=== PATIENT | male | born 1965 | race Caucasian/White ===

== ENCOUNTER 2017-01-13 11:22 | Emergency (ER) | payer BC ==
[2017-01-13 11:27] VITALS: BP 116/103
[2017-01-13] MEDS ORDERED: IV NORMAL SALINE 1,000ML 1,000 ML IV ONE (12:15)
[2017-01-13 12:22] LABS: BASO # 0.1 x10^3/uL (0.0-0.2); BASO % 1 % (0-3); EOS # 0.1 x10^3/uL (0.0-0.7); EOS % 2 % (0-3); HEMOGLOBIN 14.8 g/dL (13.0-17.5); LYMPH # 1.8 x10^3/uL (1.0-4.8); LYMPH % 23 % (24-48); MEAN CORPUSCULAR HEMOGLOBIN 33 pg (25-35); MEAN CORPUSCULAR HGB CONC 34 g/dL (31-37); MEAN CORPUSCULAR VOLUME 97 fL (79-100); MONO # 0.5 x10^3/uL (0.0-1.1); MONO % 7 % (0-9); NEUT # 5.2 x10^3uL (1.8-7.7); NEUT % 67 % (31-73); PLATELET COUNT 250 x10^3/uL (140-400); RED BLOOD COUNT 4.46 x10^6/uL (4.30-5.70); RED CELL DISTRIBUTION WIDTH 13.2 % (11.5-14.5); WHITE BLOOD COUNT 7.8 x10^3/uL (4.0-11.0)
[2017-01-13 12:27] LABS: BGAS PH 7.32 (7.35-7.46)
--- NOTE | 2017-01-13 12:45 | RAD ---
Portable AP chest. History: Altered mental status, chest pain AP view was taken of the chest. Lungs are free of confluent areas of infiltrate. Heart is normal in size. There is no pleural effusion. There is an old clavicle fracture on the right. Impression: 1. Old right clavicle fracture. 2. No acute infiltrates.
--- NOTE | 2017-01-13 12:48 | RAD ---
One or more of the following individualized dose reduction techniques were utilized for this examination: 1. Automated exposure control 2. Adjustment of the mA and/or kV according to patient size 3. Use of iterative reconstruction technique CT brain without contrast History: Altered mental status CT scan of the brain was done without intravenous contrast. There is no intracranial hemorrhage or subdural hematoma. Ventricles are normal in size. There is no mass or shift of the midline. An acute CVA is not identified. There is mucosal thickening in the right maxillary sinus and in the ethmoid sinuses. Impression: 1. No intracranial hemorrhage or acute finding noted.
--- NOTE | 2017-01-13 12:54 | EKG ---
[address] [address] Test Date: 2017-01-13 Test Time: 12:39:25 Pat Name: JOSE L CASTILLO Department: Room: Gender: M Publicity Writer: : 1965 Requested By: MAHIN HADDAD Order Number: [id number] Reading MD: Measurements Intervals [place] Rate: 66 P: 40 IN: 130 QRS: 52 QRSD: 84 T: 51 QT: 368 QTc: 387 Interpretive Statements SINUS RHYTHM NORMAL ECG RI6.01 No previous ECG available for comparison
[2017-01-13 13:32] LABS: BACTERIA,URINE 0 /HPF (0-FEW); BILIRUBIN,URINE NEG (NEG); CLARITY,URINE CLEAR; COLOR,URINE YELLOW; GLUCOSE,URINE NEG (NEG); NITRITE,URINE NEG (NEG); RBC,URINE 0 /HPF (0-2); SQUAMOUS EPITHELIAL CELL,UR FEW /LPF; UROBILINOGEN,URINE 0.2 mg/dL (0.2 mg/dL); WBC,URINE 0 /HPF (0-4)
--- NOTE | 2017-01-13 13:34 | PHYS DOC ---
Past History Past Medical History: COPD Past Surgical History: No Surgical History Alcohol Use: Occasionally Drug Use: None Adult General Chief Complaint Chief Complaint: ALTERED MENTAL STATUS HPI HPI Patient is a 52 year old male who presents with his to the emergency department for evaluation of altered mental status. The patient has had increased confusion and slurring of speech per the patient's . The patient states that he has had increasing fatigue. The patient states he has history of chronic back pain and takes Percocet for his pain. Patient states that he has been taking his normal amount of medication. The patient states that he may be dehydrated as he has not been drinking much over the past couple days due to being busy. Patient has not had any fevers. Patient denies any chest pain or abdominal pain currently. Patient has been slightly unsteady on his feet since onset of symptoms but denies any localizing weakness. also notes that patient has history of sleep apnea and is being evaluated for prescription of CPAP machine. The patient is a daily smoker and has history of COPD. Review of Systems Review of Systems Constitutional: Denies fever or chills [] Eyes: Denies change in visual acuity, redness, or eye pain [] HENT: Denies nasal congestion or sore throat [] Respiratory: Denies cough or shortness of breath [] Cardiovascular: Denies chest pain or edema[] GI: Denies abdominal pain, nausea, vomiting, bloody stools or diarrhea [] : Denies dysuria or hematuria [] Musculoskeletal: Denies back pain or joint pain [] Integument: Denies rash or skin lesions [] Neurologic: Confusion, slight loss of balance, slurring words, denies focal weakness or sensory changes [] Current Medications Current Medications Current Medications Medications (Trade) Dose Ordered Sig/[facility] Start Time Stop Time Status Last Admin Dose Admin Sodium Chloride 1,000 ml @ 1,000 mls/hr 1X ONCE 01/13/17 12:15 01/13/17 13:14 DC 01/13/17 12:15 1,000 MLS/HR Allergies Allergies Allergies Coded Allergies Type Severity Reaction Last Updated Verified No Known Drug Allergies 01/13/17 No Physical Exam Physical Exam Constitutional: Alert, slight slurring of speech, no acute distress. [] HENT: Normocephalic, atraumatic, bilateral external ears normal, oropharynx moist, no oral exudates, nose normal. [] Eyes: Pupils pinpoint, EOMI, conjunctiva normal, no discharge. [] Neck: Normal range of motion, no tenderness, supple, no stridor. [] Cardiovascular:Heart rate regular rhythm, no murmur [] Lungs & Thorax: Bilateral breath sounds clear to auscultation [] Abdomen: Bowel sounds normal, soft, no tenderness, no masses, no pulsatile masses. [] Skin: Warm, dry, no erythema, no rash. [] Back: No tenderness, no CVA tenderness. [] Extremities: No tenderness, no cyanosis, no clubbing, ROM intact, no edema. [] Neurologic: Alert and oriented X 3, normal motor function, normal sensory function, no focal deficits noted. [] Current Patient Data Vital Signs Vital Signs Date Time Temp Pulse Resp B/P (MAP) Pulse Ox O2 Delivery O2 Flow Rate FiO2 01/13/17 11:27 97.8 83 16 98 Room Air Lab Results Laboratory Tests Test 01/13/17 11:30 01/13/17 12:04 01/13/17 13:15 White Blood Count 7.8 x10^3/uL (4.0-11.0) Red Blood Count 4.46 x10^6/uL (4.30-5.70) Hemoglobin 14.8 g/dL (13.0-17.5) Hematocrit 43.0 % (39.0-53.0) Mean Corpuscular Volume 97 fL (79-100) Mean Corpuscular Hemoglobin 33 pg (25-35) Mean Corpuscular Hemoglobin Concent 34 g/dL (31-37) Red Cell Distribution Width 13.2 % (11.5-14.5) Platelet Count 250 x10^3/uL (140-400) Neutrophils (%) (Auto) 67 % (31-73) Lymphocytes (%) (Auto) 23 % (24-48) L Monocytes (%) (Auto) 7 % (0-9) Eosinophils (%) (Auto) 2 % (0-3) Basophils (%) (Auto) 1 % (0-3) Neutrophils # (Auto) 5.2 x10^3uL (1.8-7.7) Lymphocytes # (Auto) 1.8 x10^3/uL (1.0-4.8) Monocytes # (Auto) 0.5 x10^3/uL (0.0-1.1) Eosinophils # (Auto) 0.1 x10^3/uL (0.0-0.7) Basophils # (Auto) 0.1 x10^3/uL (0.0-0.2) Blood pH 7.32 (7.35-7.46) L Blood Gas PCO2 51 mmHg (35-46) H Blood Gas PO2 71 mmHg (80-100) L Blood Gas HCO3 26 mmol/L (21-28) Arterial Bld O2 Saturation (Calc) 92 % (92-99) FiO2 21 % Urine Collection Type Void Urine Color Yellow Urine Clarity Clear Urine pH 5.5 Urine Specific Pearce 1.020 Urine Protein Neg (NEG-TRACE) Urine Glucose (UA) Neg mg/dL (NEG) Urine Ketones (Stick) Neg mg/dL (NEG) Urine Blood Neg (NEG) Urine Nitrite Neg (NEG) Urine Bilirubin Neg (NEG) Urine Urobilinogen Dipstick 0.2 mg/dL (0.2 mg/dL) Urine Leukocyte Esterase Neg (NEG) Urine RBC 0 /HPF (0-2) Urine WBC 0 /HPF (0-4) Urine Squamous Epithelial Cells Few /LPF Urine Bacteria 0 /HPF (0-FEW) EKG EKG Interpreted by me: Heart rate 66, sinus rhythm, normal intervals, normal axis, no acute ST/T-wave abnormalities present Radiology/Procedures Radiology/[place] [address] IMAGING REPORT Signed PATIENT: JOSE L CASTILLO ACCOUNT: [id number] : 1965 LOCATION: ER AGE: 52 SEX: M EXAM STATUS: PRE ER ORD. PHYSICIAN: MAHIN HADDAD MD REASON: altered mental status, rule out acute cardiopulmonary abnormality PROCEDURE: PORTABLE CHEST 1V Portable AP chest. History: Altered mental status, chest pain AP view was taken of the chest. Lungs are free of confluent areas of infiltrate. Heart is normal in size. There is no pleural effusion. There is an old clavicle fracture on the right. Impression: 1. Old right clavicle fracture. 2. No acute infiltrates. DICTATED AND SIGNED BY: KATHY BAR MD DATE: 01/13/17 1241 CC: MAHIN HADDAD MD ~ [address] [id number] IMAGING REPORT Signed PATIENT: JOSE L CASTILLO ACCOUNT: [id number] : 1965 LOCATION: ER AGE: 52 SEX: M EXAM STATUS: PRE ER ORD. PHYSICIAN: MAHIN HADDAD MD REASON: altered mental status PROCEDURE: CT HEAD WO CONTRAST One or more of the following individualized dose reduction techniques were utilized for this examination: 1. Automated exposure control 2. Adjustment of the mA and/or kV according to patient size 3. Use of iterative reconstruction technique CT brain without contrast History: Altered mental status CT scan of the brain was done without intravenous contrast. There is no intracranial hemorrhage or subdural hematoma. Ventricles are normal in size. There is no mass or shift of the midline. An acute CVA is not identified. There is mucosal thickening in the right maxillary sinus and in the ethmoid sinuses. Impression: 1. No intracranial hemorrhage or acute finding noted. DICTATED AND SIGNED BY: KATHY BAR MD DATE: 01/13/171242 CC: MAHIN HADDAD MD ~ [] Course & Med Decision Making Course & Med Decision Making Pertinent Labs and Imaging studies reviewed. (See chart for details) Patient given IV fluids in the emergency department. The patient's symptoms are consistent with narcotic toxidrome. This may be due to overuse medication, however patient may also have a component of chronic hypercarbic respiratory failure. states that they will be obtaining a CPAP machine tonight for use. Advised patient to discontinue use of pain medications and recommended follow-up in 2 days a primary doctor for reevaluation. Advised return emergency department for any worsening symptoms. Patient voiced understanding and agreement with treatment plan. Dragon Disclaimer Dragon Disclaimer This chart was dictated in whole or in part using Voice Recognition software in a busy, high-work load, and often noisy Emergency Department environment. It may contain unintended and wholly unrecognized errors or omissions. Departure Departure: Impression: Primary Impression: Opioid intoxication Additional Impressions: Hypercarbia COPD (chronic obstructive pulmonary disease) Dehydration Disposition: 01 HOME, SELF-CARE Condition: IMPROVED Referrals: NICOLAS DIAZ (PCP) Patient Instructions: Chronic Obstructive Pulmonary Disease, Dehydration, Adult , Narcotic Overdose Additional Instructions: Discontinue use of pain medications until you have followed up with your primary doctor in the next 2-3 days. Return to the emergency department for any worsening symptoms. Problem Qualifiers Primary Impression: Opioid intoxication Complication of substance-induced condition: with unspecified complication Qualified Codes: F11.929 - Opioid use, unspecified with intoxication, unspecified Additional Impressions: COPD (chronic obstructive pulmonary disease) COPD type: unspecified COPD Qualified Codes: J44.9 - Chronic obstructive pulmonary disease, unspecified MAHIN HADDAD MD Jan 13, 2017 13:34
[2017-01-13 14:08] LABS: ALBUMIN 4.1 g/dL (3.4-5.0); ALBUMIN/GLOBULIN RATIO 1.4 (1.0-1.7); CALCIUM 9.3 mg/dL (8.5-10.1)
[2017-01-13 14:09] LABS: CREATININE 0.8 mg/dL (0.7-1.3); GFR 101.1; POTASSIUM 4.8 mmol/L (3.5-5.1); TOTAL BILIRUBIN 0.6 mg/dL (0.2-1.0)
[2017-01-13 14:12] LABS: MAGNESIUM 2.3 mg/dL (1.8-2.4)
[2017-01-13 14:29] LABS: POTASSIUM ISTAT 5.1 mmol/L (3.5-5.0)
[2017-01-13 16:29] LABS: BARBITURATES NEG (NEG)
[2017-01-13 16:30] LABS: BENZODIAZEPINES POS (NEG); CANNABINOIDS POS (NEG); COCAINE POS (NEG); METHADONE NEG (NEG); OPIATES POS (NEG); PHENCYCLIDINE NEG (NEG)
[2017-01-13 16:31] LABS: AMPHETAMINE/METHAMPHETAMINE NEG (NEG)
== END 2017-01-13 15:32 | disposition home or self-care (01) ==
LOC: ER 11:22
DX: F11.129 Opioid abuse with intoxication, unspecified (principal); R06.89 Other abnormalities of breathing; J44.9 Chronic obstructive pulmonary disease, unspecified; E86.0 Dehydration; Z79.891 Long term (current) use of opiate analgesic
CPT/HCPCS: 36415; 36600; 70450; 71010; 80047; 80053; 80307; 81001; 82803; 83735; 85025; 93005; 96360; 99285-25; G0479; J7030

== ENCOUNTER → 2017-08-30 | Outpatient (CLI) | payer BC | END | disposition home or self-care (01) | LOC: SURG 15:06 | PROVIDERS: ATTEND Anesthesiology Pain Medicine | DX: M54.16 Radiculopathy, lumbar region (principal); M47.816 Spondylosis without myelopathy or radiculopathy, lumbar region; F11.20 Opioid dependence, uncomplicated; G89.4 Chronic pain syndrome | CPT/HCPCS: 99204 ==

== ENCOUNTER 2017-09-11 17:36 | Emergency (ER) | payer OTHER, BC ==
[~2017-09-11] VITALS: Ht 167.6 cm; Wt 72.6 kg
[2017-09-11] MEDS ORDERED: HYDROcodone/APAP 5/325MG 1 TAB TABLET PO ONE (18:15)
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
[2017-09-11 20:22] VITALS: BP 154/87
[2017-09-11] MEDS ORDERED: IBUP800T19 PO (20:31)
[2017-09-11] MEDS ORDERED: HYDR-79 PO (20:31)
--- NOTE | 2017-09-11 23:32 | RAD ---
Three-view left hand dated 09/11/2017. No comparison available. CLINICAL INDICATION: Pain after injury. FINDINGS: 3 views left hand show comminuted intra-articular fracture at the base of the second proximal phalanx. Mild displacement of fracture fragments with mild ulnar angulation. No additional fractures are seen. Alignment is otherwise anatomic. IMPRESSION: Comminuted intra-articular fracture at the base of the second proximal phalanx. Electronically signed by: Pop Bess MD (09/11/2017 11:29 PM) [facility]
== END 2017-09-11 20:43 | disposition home or self-care (01) ==
LOC: ER 17:36
DX: S62.611A Displaced fracture of proximal phalanx of left index finger, initial encounter for closed fracture (principal); J44.9 Chronic obstructive pulmonary disease, unspecified; X58.XXXA Exposure to other specified factors, initial encounter; Y93.89 Activity, other specified; Y99.8 Other external cause status; Y92.89 Other specified places as the place of occurrence of the external cause
CPT/HCPCS: 29125; 73130; 99284

== ENCOUNTER 2017-10-01 10:06 | Emergency (ER) | payer OTHER, BC ==
[~2017-10-01] VITALS: Ht 167.6 cm; Wt 72.6 kg
[~2017-10-01 10:06] MED LIST: HYDR-79 PO; IBUP800T19 PO
--- NOTE | 2017-10-01 10:28 | PHYS DOC ---
Past History Past Medical History: COPD Past Surgical History: No Surgical History Alcohol Use: None Drug Use: None Adult General Chief Complaint Chief Complaint: WOUND CHECK [facility] Patient is a 52-year-old male who presents for evaluation of his left hand. He states that he injured the left hand at the end of last month (about 3 weeks ago ). He states that he had surgery on the hand at last week on Sunday, September 26 (5 days ago). During this procedure some external fixation pins were placed and a radial gutter splint was applied. He was told to leave the splint alone and was set up with outpatient rehabilitation services and follow-up with the surgeon in about a week. He states that he was not sent home with any pain medication because his told him that he had some at home and then when they got home they didn't have any. He is still taking Keflex which was prescribed from . He states that his hand is been hurting about the same since surgery and that it is not any worse today than had been recently. He is alert and oriented 3, calm, appears to be in no distress. He denies fevers or chills, and redness, drainage from wound, new trauma, weakness or numbness. He believes that during his sleep last night some of the dressing came off so when he presents to the emergency Department today the radial gutter splint had already been removed. Review of Systems Review of Systems Constitutional: Denies fever or chills [] Eyes: Denies change in visual acuity, redness, or eye pain [] HENT: Denies nasal congestion or sore throat [] Respiratory: Denies cough or shortness of breath [] Cardiovascular: No additional information not addressed in [facility] [] GI: Denies abdominal pain, nausea, vomiting, bloody stools or diarrhea [] : Denies dysuria or hematuria [] Musculoskeletal: Denies back pain or joint pain, left hand chronic pain since surgery Integument: Denies rash or skin lesions [] Neurologic: Denies headache, focal weakness or sensory changes [] Endocrine: Denies polyuria or polydipsia [] All other systems were reviewed and found to be within normal limits, except as documented in this note. Allergies Allergies Allergies Coded Allergies Type Severity Reaction Last Updated Verified No Known Drug Allergies 01/13/17 No Physical Exam Physical Exam Constitutional: Well developed, well nourished, no acute distress, non-toxic appearance. [] HENT: Normocephalic, atraumatic, bilateral external ears normal, oropharynx moist, no oral exudates, nose normal. [] Eyes: PERRLA, EOMI, conjunctiva normal, no discharge. [] Neck: Normal range of motion, no tenderness, supple, no stridor. [] Cardiovascular:Heart rate regular rhythm, no murmur [] Lungs & Thorax: Bilateral breath sounds clear to auscultation [] Abdomen: Bowel sounds normal, soft, no tenderness, no masses, no pulsatile masses. [] Skin: Warm, dry, no erythema, no rash. [] Back: No tenderness, no CVA tenderness. [] Extremities: No tenderness, no cyanosis, no clubbing, ROM intact, no edema. [] left hand with external pins in the first phalynx, no sign of infection, no erythema/warm/drainage, distally ROM and sensation intact, normal cap refill Neurologic: Alert and oriented X 3, normal motor function, normal sensory function, no focal deficits noted. [] Psychologic: Affect normal, judgement normal, mood normal. [] EKG EKG [] Radiology/Procedures Radiology/Procedures [address] [address] IMAGING REPORT Signed PATIENT: JOSE L CASTILLO ACCOUNT: [id number] : 1965 LOCATION: ER AGE: 52 SEX: M EXAM STATUS: REG ER ORD. PHYSICIAN: DANIELLE COSTELLO DO REASON: left hand pain, recent surgery with pins PROCEDURE: HAND LEFT 3V Examination: 3 views of the left hand HISTORY: History of left-sided pain COMPARISON: 09/11/2017 FINDINGS: Two K wires identified transfixing the comminuted fractures of the base of the proximal phalanx of the second digit. On the lateral view one of the K wires appears to project outside the skin in the distal aspect of the dorsum of the hand. On the frontal view the other K wire seen extending outside the skin, correlate clinically. No significant displacement of the fracture fragments. IMPRESSION: K wires transfixing the comminuted fracture of the base of the proximal phalanx as described above. Electronically signed by: Rick Orozco MD (10/01/2017 10:49 AM) [id number] DICTATED AND SIGNED BY: RICK OROZCO MD DATE: 10/01/17 1045 CC: DANIELLE COSTELLO DO; ROSMERY ROCKWELL MD ~ Course & Med Decision Making Course & Med Decision Making Pertinent Labs and Imaging studies reviewed. (See chart for details) @1105 - Xrays unremarkable. Pt to f/u with surgeon at . No complication at this time. Return immediately for new or worsening symptoms. Dragon Disclaimer Dragon Disclaimer This electronic medical record was generated, in whole or in part, using a voice recognition dictation system. Departure Departure: Impression: Primary Impression: Visit for wound check Disposition: HOME, SELF-CARE Condition: STABLE Referrals: ROSMERY ROCKWELL MD (PCP) Patient Instructions: Wound Check Additional Instructions: Take the prescribed medicine as needed. Follow-up with your doctor at as previously arranged. Continue taking her Keflex antibiotic at home. Return to the emergency department for fever, chills, worsening pain, drainage from wound , new or worsening symptoms. Scripts Hydrocodone Bit/Acetaminophen (NORCO 5-325 TABLET) 1 Each Tablet 1 TAB PO Q4-6HRS, #15 TAB Prov: DANIELLE COSTELLO DO 10/01/17 DANIELLE COSTELLO DO Oct 01, 2017 10:28
--- NOTE | 2017-10-01 10:52 | RAD ---
Examination: 3 views of the left hand HISTORY: History of left-sided pain COMPARISON: 09/11/2017 FINDINGS: Two K wires identified transfixing the comminuted fractures of the base of the proximal phalanx of the second digit. On the lateral view one of the K wires appears to project outside the skin in the distal aspect of the dorsum of the hand. On the frontal view the other K wire seen extending outside the skin, correlate clinically. No significant displacement of the fracture fragments. IMPRESSION: K wires transfixing the comminuted fracture of the base of the proximal phalanx as described above. Electronically signed by: Rick Orozco MD (10/01/2017 10:49 AM) [id number]
[2017-10-01] MEDS ORDERED: HYDROcodone/APAP 7.5/325MG 1 TAB TABLET PO ONE (11:00)
[2017-10-01] MEDS ORDERED: HYDR-971 PO (11:08)
[2017-10-01 11:19] VITALS: BP 134/98
== END 2017-10-01 11:20 | disposition home or self-care (01) ==
LOC: ER 10:06
DX: S62.611D Displaced fracture of proximal phalanx of left index finger, subsequent encounter for fracture with routine healing (principal); J44.9 Chronic obstructive pulmonary disease, unspecified; X58.XXXD Exposure to other specified factors, subsequent encounter
CPT/HCPCS: 29125; 73130; 99284

== ENCOUNTER 2018-04-23 23:02 | Emergency (ER) | payer BC, OTHER ==
[~2018-04-23 23:02] MED LIST changes: +HYDR-1179 PO; +HYDR-3165 PO; -HYDR-79 PO
--- NOTE | 2018-04-23 23:12 | ED.ADGEN ---
Past History Past Medical History: Bronchitis, COPD Past Surgical History: Other Past Surgical History Hand Smoking: Cigarettes Alcohol Use: None Drug Use: Cocaine, Marijuana Adult General Chief Complaint Chief Complaint ".. I ve been coughing for a while.. but I started this chest pain in center of my chest.. this morning.. and it not gotten better.. I did start my self on some left over amoxicillin... I had the last two days... " HPI HPI Patient is a 53 year old male who presents with above hx and complaints of dyspnea, coughing, and chest pain. Pt. states he had productive sputum - floyd to green in color. Has taken some old left over Amoxicillin the last two days. Pt. patient rates his pain as 8-9 out of 10. It is in center chest and associated with deep breaths and cough. No radiation. No previous history of cardiac disorder. Patient does smoke. No recent travel or specific ill contacts. Patient normally follows with Dr. De Paz. Review of Systems Review of Systems Constitutional: Denies fever or chills [] Eyes: Denies change in visual acuity, redness, or eye pain [] HENT: Denies nasal congestion or sore throat [] Respiratory: complaints of cough , wheezing and shortness of breath [] Cardiovascular: No additional information not addressed in HPI [] GI: Denies abdominal pain, nausea, vomiting, bloody stools or diarrhea [] : Denies dysuria or hematuria [] Musculoskeletal: Denies back pain or joint pain [] Integument: Denies rash or skin lesions [] Neurologic: Denies headache, focal weakness or sensory changes [] Endocrine: Denies polyuria or polydipsia [] All other systems were reviewed and found to be within normal limits, except as documented in this note. Family History Family History Non-contributory Current Medications Current Medications Current Medications Medications (Trade) Dose Ordered Sig/Julian Start Time Stop Time Status Last Admin Dose Admin Albuterol Sulfate (Ventolin Hfa Inhaler) 2 puff 1X ONCE 04/23/18 23:30 04/23/18 23:31 DC 04/23/18 23:36 2 PUFF Aspirin (Children'S Aspirin) 324 mg 1X ONCE 04/23/18 23:30 04/23/18 23:31 DC 04/23/18 23:56 324 MG Azithromycin (Zithromax) 500 mg 1X ONCE 04/23/18 23:30 04/23/18 23:31 DC 04/23/18 23:56 500 MG Ceftriaxone Sodium (Rocephin Im) 1 gm 1X ONCE 04/23/18 23:30 04/23/18 23:31 DC 04/23/18 23:55 1 GM Ketorolac Tromethamine (Toradol 30mg Vial) 30 mg 1X ONCE 04/23/18 23:30 04/23/18 23:31 DC 04/23/18 23:55 30 MG Lactated Ringer's 1,000 ml @ 1,000 mls/hr Q1H 04/23/18 23:30 04/24/18 00:29 DC 04/23/18 23:55 1,000 MLS/HR Sodium Chloride 50 ml @ As Directed STK-MED ONCE 04/23/18 23:51 04/23/18 23:52 DC Allergies Allergies Allergies Coded Allergies Type Severity Reaction Last Updated Verified prednisone Allergy Unknown 10/01/17 Yes Physical Exam Physical Exam Constitutional: moderately acute distress, non-toxic appearance. [] HENT: Normocephalic, atraumatic, bilateral external ears normal, oropharynx moist, no oral exudates, nose swollen turbinates and rhinorrhea. Eyes: PERRLA, EOMI, conjunctiva normal, no discharge. Glasses Neck: Normal range of motion, no tenderness, supple, no stridor. [] Cardiovascular: Tachycardia Heart rate regular rhythm, no murmur [] Lungs & Thorax: Bilateral breath sounds equal apexes with scattered wheezes on auscultation []Occasional coughing spasms. Abdomen: Bowel sounds normal, soft, no tenderness, no masses, no pulsatile masses. [] Skin: Warm, dry, no erythema, no rash. [] Back: No tenderness, no CVA tenderness. [] Extremities: No tenderness, no cyanosis, no clubbing, ROM intact, no edema. [] Scar Hand Neurologic: Alert and oriented X 3, normal motor function, normal sensory function, no focal deficits noted. [] Psychologic: Affect anxious , judgement normal, mood normal. [] Current Patient Data Vital Signs Vital Signs Date Time Temp Pulse Resp B/P (MAP) Pulse Ox O2 Delivery O2 Flow Rate FiO2 04/23/18 23:51 97 Room Air Lab Results Laboratory Tests Test 04/23/18 23:15 04/23/18 23:25 04/24/18 00:07 White Blood Count 8.0 x10^3/uL (4.0-11.0) Red Blood Count 4.58 x10^6/uL (4.30-5.70) Hemoglobin 14.4 g/dL (13.0-17.5) Hematocrit 42.7 % (39.0-53.0) Mean Corpuscular Volume 93 fL (79-100) Mean Corpuscular Hemoglobin 31 pg (25-35) Mean Corpuscular Hemoglobin Concent 34 g/dL (31-37) Red Cell Distribution Width 12.9 % (11.5-14.5) Platelet Count 276 x10^3/uL (140-400) Neutrophils (%) (Auto) 52 % (31-73) Lymphocytes (%) (Auto) 34 % (24-48) Monocytes (%) (Auto) 11 % (0-9) H Eosinophils (%) (Auto) 3 % (0-3) Basophils (%) (Auto) 1 % (0-3) Neutrophils # (Auto) 4.1 x10^3uL (1.8-7.7) Lymphocytes # (Auto) 2.7 x10^3/uL (1.0-4.8) Monocytes # (Auto) 0.8 x10^3/uL (0.0-1.1) Eosinophils # (Auto) 0.2 x10^3/uL (0.0-0.7) Basophils # (Auto) 0.1 x10^3/uL (0.0-0.2) Prothrombin Time 9.7 SEC (9.4-11.4) Prothrombin Time INR 1.0 (0.9-1.1) PTT 25 SEC (23-33) D-Dimer (Margie) < 0.19 mg/L (0.00-0.50) Sodium Level 144 mmol/L (136-145) Potassium Level 3.6 mmol/L (3.5-5.1) Chloride Level 107 mmol/L (98-107) Carbon Dioxide Level 30 mmol/L (21-32) Anion Gap 7 (6-14) Blood Urea Nitrogen 12 mg/dL (8-26) Creatinine 1.1 mg/dL (0.7-1.3) Estimated GFR (Cockcroft-Gault) 69.8 Glucose Level 139 mg/dL (70-99) H Calcium Level 8.8 mg/dL (8.5-10.1) Magnesium Level 2.1 mg/dL (1.8-2.4) Total Bilirubin 0.2 mg/dL (0.2-1.0) Direct Bilirubin 0.1 mg/dL (0.0-0.2) Aspartate Amino Transferase (AST) 16 U/L (15-37) Alanine Aminotransferase (ALT) 21 U/L (16-63) Alkaline Phosphatase 112 U/L (46-116) Creatine Kinase 69 U/L (39-308) Troponin I Quantitative < 0.017 ng/mL (0-0.055) JV-Ozm-Q-Type Natriuretic Peptide 23 pg/mL (0-124) Total Protein 6.8 g/dL (6.4-8.2) Albumin 3.3 g/dL (3.4-5.0) L Lipase 69 U/L (73-393) L Urine Collection Type Unknown Urine Color Yellow Urine Clarity Clear Urine pH 6.5 Urine Specific [place] 1.015 Urine Protein Neg (NEG-TRACE) Urine Glucose (UA) Neg mg/dL (NEG) Urine Ketones (Stick) Neg mg/dL (NEG) Urine Blood Trace (NEG) Urine Nitrite Neg (NEG) Urine Bilirubin Neg (NEG) Urine Urobilinogen Dipstick 0.2 mg/dL (0.2 mg/dL) Urine Leukocyte Esterase Neg (NEG) Urine RBC 0 /HPF (0-2) Urine WBC Rare /HPF (0-4) Urine Squamous Epithelial Cells Occ /LPF Urine Bacteria 0 /HPF (0-FEW) Urine Opiates Screen Pos (NEG) Urine Methadone Screen Neg (NEG) Urine Barbiturates Neg (NEG) Urine Phencyclidine Screen Neg (NEG) Urine Amphetamine/Methamphetamine Neg (NEG) Urine Benzodiazepines Screen Neg (NEG) Urine Cocaine Screen Pos (NEG) Urine Cannabinoids Screen Pos (NEG) Urine Ethyl Alcohol Neg (NEG) Influenza Type A (Rapid) Negative (NEGATIVE) Influenza Type B (Rapid) Negative (NEGATIVE) EKG EKG My interpretation of EKG shows a sinus tachycardia at 105 bpm. No findings acute STEMI of contralateral changes.[] Radiology/Procedures Radiology/Procedures My interpretation chest x-ray shows chronic emphysema/COPD changes. No large infiltrate. Somewhat normal cardiac silhouette. No free air in the diaphragm.[] Course & Med Decision Making Course & Med Decision Making Pertinent Labs and Imaging studies reviewed. (See chart for details). Pt. report marked improvement, currently demanding discharge. Refuses admission at this time. Pt. to use Azithromax 250 a day. Avoid Tobacco, MJ, Cocaine use. Follow up with primary. Return if he elects to complete his CP work up. Pt. take daily ASA. [] Final Impression Final Impression 1. Chest Pain 2. Bronchitis[] 3. Polysubstance Abuse- Tob. , MJ, Cocaine Dragon Disclaimer Dragon Disclaimer This electronic medical record was generated, in whole or in part, using a voice recognition dictation system. [employer] Disclaimer This chart was dictated in whole or in part using Voice Recognition software in a busy, high-work load, and often noisy Emergency Department environment. It may contain unintended and wholly unrecognized errors or omissions. Discharge Summary Visit Information Final Diagnosis Problems Medical Problems: (1) COPD exacerbation Status: Acute Brief Hospital Course Allergies Allergies Coded Allergies Type Severity Reaction Last Updated Verified prednisone Allergy Unknown 10/01/17 Yes Vital Signs Vital Signs Date Time Temp Pulse Resp B/P (MAP) Pulse Ox O2 Delivery O2 Flow Rate FiO2 04/23/18 23:51 97 Room Air Lab Results Laboratory Tests Test 04/23/18 23:15 04/23/18 23:25 04/24/18 00:07 White Blood Count 8.0 x10^3/uL (4.0-11.0) Red Blood Count 4.58 x10^6/uL (4.30-5.70) Hemoglobin 14.4 g/dL (13.0-17.5) Hematocrit 42.7 % (39.0-53.0) Mean Corpuscular Volume 93 fL (79-100) Mean Corpuscular Hemoglobin 31 pg (25-35) Mean Corpuscular Hemoglobin Concent 34 g/dL (31-37) Red Cell Distribution Width 12.9 % (11.5-14.5) Platelet Count 276 x10^3/uL (140-400) Neutrophils (%) (Auto) 52 % (31-73) Lymphocytes (%) (Auto) 34 % (24-48) Monocytes (%) (Auto) 11 % (0-9) Eosinophils (%) (Auto) 3 % (0-3) Basophils (%) (Auto) 1 % (0-3) Neutrophils # (Auto) 4.1 x10^3uL (1.8-7.7) Lymphocytes # (Auto) 2.7 x10^3/uL (1.0-4.8) Monocytes # (Auto) 0.8 x10^3/uL (0.0-1.1) Eosinophils # (Auto) 0.2 x10^3/uL (0.0-0.7) Basophils # (Auto) 0.1 x10^3/uL (0.0-0.2) Prothrombin Time 9.7 SEC (9.4-11.4) Prothromb Time International Ratio 1.0 (0.9-1.1) Activated Partial Thromboplast Time 25 SEC (23-33) D-Dimer (Margie) < 0.19 mg/L (0.00-0.50) Sodium Level 144 mmol/L (136-145) Potassium Level 3.6 mmol/L (3.5-5.1) Chloride Level 107 mmol/L (98-107) Carbon Dioxide Level 30 mmol/L (21-32) Anion Gap 7 (6-14) Blood Urea Nitrogen 12 mg/dL (8-26) Creatinine 1.1 mg/dL (0.7-1.3) Estimated GFR (Cockcroft-Gault) 69.8 Glucose Level 139 mg/dL (70-99) Calcium Level 8.8 mg/dL (8.5-10.1) Magnesium Level 2.1 mg/dL (1.8-2.4) Total Bilirubin 0.2 mg/dL (0.2-1.0) Direct Bilirubin 0.1 mg/dL (0.0-0.2) Aspartate Amino Transf (AST/SGOT) 16 U/L (15-37) Alanine Aminotransferase (ALT/SGPT) 21 U/L (16-63) Alkaline Phosphatase 112 U/L (46-116) Creatine Kinase 69 U/L (39-308) Troponin I Quantitative < 0.017 ng/mL (0-0.055) HQ-Pbc-X-Type Natriuretic Peptide 23 pg/mL (0-124) Total Protein 6.8 g/dL (6.4-8.2) Albumin 3.3 g/dL (3.4-5.0) Lipase 69 U/L (73-393) Urine Collection Type Unknown Urine Color Yellow Urine Clarity Clear Urine pH 6.5 Urine Specific [place] 1.015 Urine Protein Neg (NEG-TRACE) Urine Glucose (UA) Neg mg/dL (NEG) Urine Ketones (Stick) Neg mg/dL (NEG) Urine Blood Trace (NEG) Urine Nitrite Neg (NEG) Urine Bilirubin Neg (NEG) Urine Urobilinogen Dipstick 0.2 mg/dL (0.2 mg/dL) Urine Leukocyte Esterase Neg (NEG) Urine RBC 0 /HPF (0-2) Urine WBC Rare /HPF (0-4) Urine Squamous Epithelial Cells Occ /LPF Urine Bacteria 0 /HPF (0-FEW) Urine Opiates Screen Pos (NEG) Urine Methadone Screen Neg (NEG) Urine Barbiturates Neg (NEG) Urine Phencyclidine Screen Neg (NEG) Urine Amphetamine/Methamphetamine Neg (NEG) Urine Benzodiazepines Screen Neg (NEG) Urine Cocaine Screen Pos (NEG) Urine Cannabinoids Screen Pos (NEG) Urine Ethyl Alcohol Neg (NEG) Influenza Type A (Rapid) Negative (NEGATIVE) Influenza Type B (Rapid) Negative (NEGATIVE) Brief Hospital Course Mr. Ortega is a 53 old male who presented with CP constant x 16 hrs. Pleuritic with cough and deep breaths. Pt. symptoms improved and demanded discharge home. Pt. encourage to stop smoking and illicit drug use. To return if he elects to complete his CP eval. Discharge Information Condition at Discharge: Improved Disposition/Orders: D/C to Home Dischare Medications Current Medications Aspirin (Children'S Aspirin) 324 mg 1X ONCE PO Last administered on 04/23/18at 23:56; Admin Dose 324 MG; Start 04/23/18 at 23:30; Stop 04/23/18 at 23:31; Status DC Lactated Ringer's 1,000 ml @ 1,000 mls/hr Q1H IV Last administered on at 23:55; Admin Dose 1,000 MLS/HR; Start 04/23/18 at 23:30; Stop 04/24/18 at 00: 29; Status DC Albuterol Sulfate (Ventolin Hfa Inhaler) 2 puff 1X ONCE INH ; Start 04/23/18 at 23:15; Stop 04/23/18 at 23:16; Status UNV Azithromycin (Zithromax) 500 mg 1X ONCE PO Last administered on 04/23/18at 23:56 ; Admin Dose 500 MG; Start 04/23/18 at 23:30; Stop 04/23/18 at 23:31; Status DC Albuterol Sulfate (Ventolin Hfa Inhaler) 2 puff 1X ONCE INH Last administered on 04/23/18at 23:36; Admin Dose 2 PUFF; Start 04/23/18 at 23:30; Stop 04/23/18 at 23 :31; Status DC Ceftriaxone Sodium (Rocephin Im) 1 gm 1X ONCE IM Last administered on at 23:55; Admin Dose 1 GM; Start 04/23/18 at 23:30; Stop 04/23/18 at 23:31; Status DC Ketorolac Tromethamine (Toradol 30mg Vial) 30 mg 1X ONCE IV Last administered on 04/23/18at 23:55; Admin Dose 30 MG; Start 04/23/18 at 23:30; Stop 04/23/18 at 23: 31; Status DC Sodium Chloride 50 ml @ As Directed STK-MED ONCE .ROUTE ; Start 04/23/18 at 23:51 ; Stop 04/23/18 at 23:52; Status DC Active Scripts Active Zithromax (Azithromycin) 250 Mg Tablet 250 Mg PO DAILY 5 Days Neligh 5-325 Tablet (Hydrocodone Bit/Acetaminophen) 1 Each Tablet 1 Tab PO Q4- 6HRS Ibuprofen 800 Mg Tablet 1 Tab PO TID Hydrocodone-Ibuprofen 7.5-200 (Hydrocodone/Ibuprofen) 1 Each Tablet 2 Tab PO PRN Q6HRS PRN 10 Days NICOLASA NICHOLAS MD Apr 23, 2018 23:12
[2018-04-23] MEDS ORDERED: ALBUTEROL SULFATE 8GM INHALER. INH ONE ×2 (23:15→23:30)
[2018-04-23] MEDS ORDERED: AZITHROMYCIN 250 MG TABLET. PO ONE (23:30)
[2018-04-23] MEDS ORDERED: IV RINGERS SOLUTION,LACTATED 1,000 ML IV SCH (23:30)
[2018-04-23] MEDS ORDERED: cefTRIAXone IM 1 GM VIAL IM ONE (23:30)
[2018-04-23] MEDS ORDERED: KETOROLAC 30 MG/ML VIAL. IV ONE (23:30)
[2018-04-23] MEDS ORDERED: ASPIRIN 81 MG TAB.CHEW PO ONE (23:30)
[2018-04-23 23:36] LABS: BASO # 0.1 x10^3/uL (0.0-0.2); BASO % 1 % (0-3); EOS # 0.2 x10^3/uL (0.0-0.7); EOS % 3 % (0-3); HEMATOCRIT 42.7 % (39.0-53.0); HEMOGLOBIN 14.4 g/dL (13.0-17.5); LYMPH # 2.7 x10^3/uL (1.0-4.8); LYMPH % 34 % (24-48); MEAN CORPUSCULAR HEMOGLOBIN 31 pg (25-35); MEAN CORPUSCULAR HGB CONC 34 g/dL (31-37); MEAN CORPUSCULAR VOLUME 93 fL (79-100); MONO # 0.8 x10^3/uL (0.0-1.1); MONO % 11 % (0-9); NEUT # 4.1 x10^3uL (1.8-7.7); NEUT % 52 % (31-73); PLATELET COUNT 276 x10^3/uL (140-400); RED BLOOD COUNT 4.58 x10^6/uL (4.30-5.70); RED CELL DISTRIBUTION WIDTH 12.9 % (11.5-14.5)
[2018-04-23] MEDS ORDERED: IV NORMAL SALINE 50ML 50 ML ONE (23:51)
[2018-04-23 23:54] LABS: ALBUMIN 3.3 g/dL (3.4-5.0); CALCIUM 8.8 mg/dL (8.5-10.1); CREATININE 1.1 mg/dL (0.7-1.3); DIRECT BILIRUBIN 0.1 mg/dL (0.0-0.2); GFR 69.8; MAGNESIUM 2.1 mg/dL (1.8-2.4); POTASSIUM 3.6 mmol/L (3.5-5.1); TOTAL BILIRUBIN 0.2 mg/dL (0.2-1.0); TOTAL PROTEIN 6.8 g/dL (6.4-8.2)
[2018-04-24 00:17] LABS: BARBITURATES NEG (NEG); BENZODIAZEPINES NEG (NEG); CANNABINOIDS POS (NEG); COCAINE POS (NEG); METHADONE NEG (NEG); OPIATES POS (NEG); PHENCYCLIDINE NEG (NEG)
[2018-04-24 00:18] LABS: AMPHETAMINE/METHAMPHETAMINE NEG (NEG)
[2018-04-24 00:24] LABS: BACTERIA,URINE 0 /HPF (0-FEW); BILIRUBIN,URINE NEG (NEG); CLARITY,URINE CLEAR; COLOR,URINE YELLOW; GLUCOSE,URINE NEG (NEG); NITRITE,URINE NEG (NEG); RBC,URINE 0 /HPF (0-2); SQUAMOUS EPITHELIAL CELL,UR OCC /LPF; UROBILINOGEN,URINE 0.2 mg/dL (0.2 mg/dL); WBC,URINE RARE /HPF (0-4)
[2018-04-24 00:35] LABS: INFLUENZA A PATIENT NEGATIVE (NEGATIVE); INFLUENZA B PATIENT NEGATIVE (NEGATIVE)
[2018-04-24] MEDS ORDERED: AZIT250T PO (00:41)
[2018-04-24 00:50] VITALS: BP 153/66
--- NOTE | 2018-04-24 01:44 | RAD ---
PA and lateral chest. HISTORY: Chest pain, COPD, smoker PA and lateral views were taken of the chest. There is a nipple shadow versus a pulmonary nodule on the left. Nipple marker films or follow-up film would be recommended. Heart is normal in size. There are no confluent infiltrates. There is no pleural effusion. IMPRESSION: 1. Nodule versus nipple shadow on the left. 2. No acute infiltrates. Electronically signed by: Talon West MD (04/24/2018 1:40 AM) [id number]
--- NOTE | 2018-04-24 05:45 | EKG ---
[address] [address] Test Date: 2018-04-23 Test Time: 23:10:40 Pat Name: JOSE L CASTILLO Department: Room: Gender: M Activity Manager: : 1965 Requested By: NICOLASA NICHOLAS Order Number: [id number] Reading MD: Measurements Intervals [place] Rate: 105 P: 54 MO: 136 QRS: 56 QRSD: 92 T: 49 QT: 328 QTc: 437 Interpretive Statements SINUS TACHYCARDIA NO SPECIFIC ECG ABNORMALITIES RI6.01 Unconfirmed report No previous ECG available for comparison
== END 2018-04-24 00:50 | disposition home or self-care (01) ==
LOC: ER 23:02
DX: J44.1 Chronic obstructive pulmonary disease with (acute) exacerbation (principal); R07.89 Other chest pain; F12.10 Cannabis abuse, uncomplicated; F15.10 Other stimulant abuse, uncomplicated; F17.210 Nicotine dependence, cigarettes, uncomplicated; Z88.8 Allergy status to other drugs, medicaments and biological substances
CPT/HCPCS: 36415; 71046; 80048; 80076; 80307; 81001; 82550; 83690; 83735; 83880; 84443; 84484; 85025; 85379; 85610; 85730; 87804; 93005; 94640; 96372; 96374; 99284; J0456; J0696; J1885; J7120; J7613; 94664

== ENCOUNTER → 2018-12-10 | Outpatient (CLI) | payer BC ==
[~2018-12-10] MED LIST changes: +AZIT250T PO
--- NOTE | 2018-12-10 15:11 | RAD ---
EXAM: Chest, 2 views. HISTORY: Cough. COMPARISON: None. FINDINGS: 2 views the chest are obtained. There is suspected left infrahilar atelectasis or interstitial infiltrate. There is no consolidation, pleural effusion or pneumothorax. The heart is normal in size. IMPRESSION: Suspected left infrahilar atelectasis or interstitial infiltrate. Electronically signed by: Yohana Villarreal MD (12/10/2018 3:09 PM) [place] [id number]
== END | disposition home or self-care (01) ==
LOC: PMG 10:36
PROVIDERS: ATTEND Physician Assistant
DX: R06.00 Dyspnea, unspecified (principal); R05 Cough
CPT/HCPCS: 71046

== ENCOUNTER → 2019-09-25 | Outpatient (CLI) | payer BC ==
--- NOTE | 2019-09-25 16:04 | RAD ---
EXAM: CHEST PA LATERAL INDICATION: Reason: SHORT OF AIR FOR AWHILE / Spl. Instructions: / History: . TECHNIQUE: PA and lateral views COMPARISON: 12/10/2018 chest x-ray FINDINGS: The heart size is normal. The great vessels appear unremarkable. There is no hilar or mediastinal mass. The lungs are clear. There is no pleural effusion or pneumothorax. There are no significant osseous abnormalities. IMPRESSION: No active cardiopulmonary disease. Electronically signed by: Brenda Desai MD (09/25/2019 4:01 PM) [id number]
== END | disposition home or self-care (01) ==
LOC: RAD 15:15
DX: R06.00 Dyspnea, unspecified (principal)
CPT/HCPCS: 71046

== ENCOUNTER 2020-01-27 22:46 | Emergency (ER) | payer BC, OTHER ==
[~2020-01-27] VITALS: Ht 167.6 cm; Wt 87.5 kg
--- NOTE | 2020-01-27 23:24 | PHYS DOC ---
Past History Past Medical History: Bronchitis, COPD Past Surgical History: Other Smoking: Cigarettes Alcohol Use: None Drug Use: Cocaine, Marijuana General Adult EDM: Chief Complaint: SORE THROAT HPI: HPI: 55-year-old male coming in for shortness of breath has had slight cough. The symptoms started today are consistent with a COPD. Is exerting himself working on cars. He has inhalers at home and states he is using that improvement. Also complaining of his chronic sciatica getting worse. Continues to smoke cigarettes. Denies fevers, vomiting, diarrhea. Review of Systems: Review of Systems: Constitutional: Denies fever or chills Eyes: Denies change in visual acuity HENT: Denies nasal congestion or sore throat Respiratory: Denies cough or shortness of breath Cardiovascular: Denies chest pain or edema GI: Denies abdominal pain, nausea, vomiting, bloody stools or diarrhea : Denies dysuria Musculoskeletal: Denies back pain or joint pain Integument: Denies rash Neurologic: Denies headache, focal weakness or sensory changes Endocrine: Denies polyuria or polydipsia Lymphatic: Denies swollen glands Psychiatric: Denies depression or anxiety Heart Score: Risk Factors: Risk Factors: DM, Current or recent (<one month) smoker, HTN, HLP, family history of CAD, obesity. Risk Scores: Score 0 - 3: 2.5% MACE over next 6 weeks - Discharge Home Score 4 - 6: 20.3% MACE over next 6 weeks - Admit for Clinical Observation Score 7 - 10: 72.7% MACE over next 6 weeks - Early Invasive Strategies Allergies: Allergies: Allergies Coded Allergies Type Severity Reaction Last Updated Verified prednisone Allergy Unknown 10/01/17 Yes Physical Exam: PE: Constitutional: Well developed, well nourished, no acute distress, non-toxic appearance. [] HENT: Normocephalic, atraumatic, bilateral external ears normal, oropharynx moist, no oral exudates, nose normal. [] Eyes: PERRLA, EOMI, conjunctiva normal, no discharge. [] Neck: Normal range of motion, no tenderness, supple, no stridor. [] Cardiovascular:Heart rate regular rhythm, no murmur [] Lungs & Thorax: Bilateral breath sounds clear to auscultation [] Abdomen: Bowel sounds normal, soft, no tenderness, no masses, no pulsatile masses. [] Skin: Warm, dry, no erythema, no rash. [] Back: No tenderness, no CVA tenderness. [] Extremities: No tenderness, no cyanosis, no clubbing, ROM intact, no edema. [] Neurologic: Alert and oriented X 3, normal motor function, normal sensory function, no focal deficits noted. [] Psychologic: Affect normal, judgement normal, mood normal. [] EKG: EKG: Sinus tachycardia, normal axis, no ectopy, no ST elevation or depression, normal intervals. [] Radiology/Procedures: Radiology/Procedures: EXAM: CHEST ONE VIEW. HISTORY: Cough, chronic obstructive pulmonary disease. COMPARISON: 09/25/2019. FINDINGS: A frontal view of the chest is obtained. There are no confluent infiltrates. There is no pneumothorax or pleural effusion. The heart is not enlarged. 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 There are atherosclerotic calcifications of the aorta. IMPRESSION: 1. No confluent infiltrates. [] Course & Med Decision Making: Course & Med Decision Making Pertinent Labs and Imaging studies reviewed. (See chart for details) Feeling better after nebulizers. States steroids given headaches [] Dragon Disclaimer: Dragon Disclaimer: This electronic medical record was generated, in whole or in part, using a voice recognition dictation system. Departure Departure: Impression: Primary Impression: COPD (chronic obstructive pulmonary disease) Disposition: 01 DC HOME SELF CARE/HOMELESS Condition: STABLE Referrals: NICOLAS DIAZ (PCP) Patient Instructions: Shortness of Breath Scripts Azithromycin (AZITHROMYCIN TABLET) 250 Mg Tablet 1 PKG PO UD for bronchitis for 5 Days, #6 TAB 0 Refills 2 the first day followed by 1 for days 2-5 Prov: TIFFANY STILL MD 01/28/20 TIFFANY STILL MD Jan 27, 2020 23:24
[2020-01-27 23:34] LABS: BASO % 1 % (0-3); EOS # 0.1 x10^3/uL (0.0-0.7); EOS % 1 % (0-3); HEMATOCRIT 42.4 % (39.0-53.0); HEMOGLOBIN 13.6 g/dL (13.0-17.5); LYMPH # 1.4 x10^3/uL (1.0-4.8); LYMPH % 14 % (24-48); MEAN CORPUSCULAR HEMOGLOBIN 28 pg (25-35); MEAN CORPUSCULAR HGB CONC 32 g/dL (31-37); MEAN CORPUSCULAR VOLUME 88 fL (79-100); MONO # 0.7 x10^3/uL (0.0-1.1); MONO % 7 % (0-9); NEUT # 7.9 x10^3uL (1.8-7.7); NEUT % 78 % (31-73); PLATELET COUNT 302 x10^3/uL (140-400); RED CELL DISTRIBUTION WIDTH 14.6 % (11.5-14.5); WHITE BLOOD COUNT 10.2 x10^3/uL (4.0-11.0)
[2020-01-27 23:44] LABS: CALCIUM 9.4 mg/dL (8.5-10.1); CREATININE 1.3 mg/dL (0.7-1.3); GFR 57.1; POTASSIUM 3.8 mmol/L (3.5-5.1)
[2020-01-27] MEDS ORDERED: IV NORMAL SALINE 1,000ML 1,000 ML IV ONE (23:45)
--- NOTE | 2020-01-28 00:01 | RAD ---
EXAM: CHEST ONE VIEW. HISTORY: Cough, chronic obstructive pulmonary disease. COMPARISON: 09/25/2019. FINDINGS: A frontal view of the chest is obtained. There are no confluent infiltrates. There is no pneumothorax or pleural effusion. The heart is not enlarged. 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 There are atherosclerotic calcifications of the aorta. IMPRESSION: 1. No confluent infiltrates. Electronically signed by: Mary Wilson MD (01/27/2020 11:58 PM) [facility]
[2020-01-28] MEDS ORDERED: IPRATRPIUM/ALBUTEROL 0.5/2.5MG 3 ML NEBU. NEB ONE ×2 (01:00)
[2020-01-28 01:07] VITALS: BP 152/80
[2020-01-28] MEDS ORDERED: AZIT250T6 PO (01:17)
--- NOTE | 2020-01-28 05:36 | EKG ---
[facility] [address] [place] [address] Test Date: 2020-01-27 Test Time: 23:13:00 Pat Name: JOSE L CASTILLO Department: Room: Gender: Layboy Operator: : 1965 Requested By: TIFFANY STILL Order Number: [id number] Reading MD: Measurements Intervals [place] Rate: 104 P: 66 NV: 132 QRS: 60 QRSD: 92 T: 54 QT: 334 QTc: 445 Interpretive Statements SINUS TACHYCARDIA NO SPECIFIC ECG ABNORMALITIES RI6.02 No previous ECG available for comparison
== END 2020-01-28 01:21 | disposition home or self-care (01) ==
LOC: ER 22:46
DX: J44.1 Chronic obstructive pulmonary disease with (acute) exacerbation (principal); F17.210 Nicotine dependence, cigarettes, uncomplicated; F14.10 Cocaine abuse, uncomplicated; F12.10 Cannabis abuse, uncomplicated; Z88.8 Allergy status to other drugs, medicaments and biological substances
CPT/HCPCS: 36415; 71045; 80048; 82803; 83605; 83880; 84484; 85025; 93005; 94640; 99285; J7030; 96360

== ENCOUNTER 2020-02-07 04:17 | Emergency (ER) | payer OTHER ==
[~2020-02-07] VITALS: Ht 170.2 cm; Wt 102.3 kg
[~2020-02-07 04:17] MED LIST changes: +AZIT250T6 PO
[2020-02-07] MEDS ORDERED: DEXAMETHASONE 4 MG TABLET PO ONE (04:30)
[2020-02-07] MEDS ORDERED: VANCOMYCIN PER PHARMACY MC PRN (04:45)
[2020-02-07] MEDS ORDERED: DOXYCYCLINE HYCLATE 100 MG in IV DEXTROSE 5% 100 ML IV ONE ×2 (04:45→05:15)
[2020-02-07] MEDS ORDERED: IV NORMAL SALINE 50ML 50 ML ONE ×3 (04:47→05:18)
[2020-02-07] MEDS ORDERED: cefTRIAXone SODIUM 1 GM VIAL ONE (04:48)
--- NOTE | 2020-02-07 04:48 | PHYS DOC ---
Past History Past Medical History: Bronchitis, COPD (PHILLIP FIELD DO) Past Medical History: COPD (KIRBY KULKARNI DO) Past Surgical History: Other (PHILLIP FIELD DO) Smoking: Cigarettes Alcohol Use: None Drug Use: Cocaine, Marijuana (PHILLIP FIELD DO) General Adult HPI: HPI: 55 yo M PMH COPD, tobacco use and cocaine/meth use, presents to the ed ( drove pt here and was honking the horn) in significant respiratory distress, speaking in 1-2 word sentences with complaints of chest pain or shortness of breath for the past 2 days, holding his inhaler, associated cough and sore throat. I was called to pts' room by RN-pt cyanotic, signficant retractions and 21% on ra, placed on NRB and transferred to isolation room and bipap pending. Oxygen increased to 90's on nrb, bipap placed due to retractions/increased work of breathing. Pt states prednisone gives him headaches but no angioedema or anaphylaxis. Denies any recent hospitalizations. Works at [employer] EMR was reviewed and patient was prescribed azithromycin January 26 for copd. (PHILLIP FIELD DO) Review of Systems: Review of Systems: Constitutional: Denies fever or chills Eyes: Denies change in visual acuity or vision loss HENT: Denies nasal congestion Respiratory: Denies hemoptysis Cardiovascular: Denies chest pain or edema or syncope GI: Denies abdominal pain, vomiting, bloody stools or diarrhea : Denies dysuria or hematuria Musculoskeletal: Denies back pain or joint pain Integument: Denies rash Neurologic: Denies headache, focal weakness or sensory changes or neck stiffness Endocrine: Denies polyuria or polydipsia Lymphatic: Denies swollen glands Psychiatric: Denies depression or anxiety (PHILLIP FIELD DO) Review of Systems: ROS unobtainable by myself as patient is intubated (KIRBY KULKARNI DO) Current Medications: Current Meds: Current Medications Medications (Trade) Dose Ordered Sig/Julian Start Time Stop Time Status Last Admin Dose Admin Albuterol/ Ipratropium (Duoneb) 3 ml 1X STAT 02/07/20 04:28 02/07/20 04:29 UNV Dexamethasone (Decadron) 10 mg 1X ONCE 02/07/20 04:30 02/07/20 04:31 UNV Sodium Chloride 1,000 ml @ 1,000 mls/hr Q1H 02/07/20 04:28 02/07/20 05:27 UNV (SEMAJPHILLIP DO) Allergies: Allergies: Allergies Coded Allergies Type Severity Reaction Last Updated Verified prednisone Allergy Unknown 10/01/17 Yes (PHILLIP FIELD ) Physical Exam: PE: Constitutional: in respiratory distress, cyanotic HENT: Normocephalic, atraumatic, Eyes: EOMI, conjunctiva normal, no discharge. [] Neck: Normal range of motion, supple, no stridor. [] Cardiovascular: tachycardic, no murmur [] Lungs & Thorax: Bilateral breath sounds equal with tight breath sounds, expiratory wheezing, sternal and subcostal retractions with tachypnea in the 40's, unable to speak on arrival - improved in 2-3 words sentences, saturation 100% NRB with persistent tachypnea/retractions and placed on bipap Abdomen: Bowel sounds normal, soft, no tenderness, no masses, no pulsatile masses. [] Skin: Warm, dry, no erythema, no rash. [] Extremities: No tenderness, no cyanosis, no clubbing, ROM intact, no edema. [] Neurologic: Alert, normal motor function, normal sensory function, no focal deficits noted. [] Psychologic: Affect normal, judgement normal, mood normal. [] (PHILLIP FIELD DO) PE: Constitutional: Sedated and on mechanical ventilation in no obvious distress HENT: Normocephalic, atraumatic, bilateral external ears normal, oropharynx moist, no oral exudates, nose normal. ET and OT tubes in place and in adequate position Eyes: PERRLA, EOMI, conjunctiva normal, no discharge. Neck: Normal range of motion, no tenderness, supple, no stridor. Cardiovascular: Heart rate regular, sinus rhythm, no murmurs rubs or gallops Lungs & Thorax: Mechanical breath sounds bilaterally, coarse rhonchi bilaterally Abdomen: Bowel sounds normal, soft, no tenderness, no masses, no pulsatile masses. Nonsurgical abdomen, no peritoneal signs Skin: Warm, dry, no erythema, no rash. Back: No tenderness, no CVA tenderness. Extremities: No tenderness, no cyanosis, no clubbing, ROM intact, no edema. Neurologic: Sedated, unable to fully assess. Upgoing toes bilaterally., no focal deficits noted. Psychologic: Sedated, unable to assess (KIRBY KULKARNI DO) Current Patient Data: Labs: Laboratory Tests Test 02/07/20 04:30 02/07/20 05:05 02/07/20 07:15 02/07/20 07:40 White Blood Count 13.3 x10^3/uL (4.0-11.0) Red Blood Count 5.15 x10^6/uL (4.30-5.70) Hemoglobin 14.6 g/dL (13.0-17.5) Hematocrit 46.3 % (39.0-53.0) Mean Corpuscular Volume 90 fL (79-100) Mean Corpuscular Hemoglobin 28 pg (25-35) Mean Corpuscular Hemoglobin Concent 32 g/dL (31-37) Red Cell Distribution Width 14.3 % (11.5-14.5) Platelet Count 391 x10^3/uL (140-400) Neutrophils (%) (Auto) 47 % (31-73) Lymphocytes (%) (Auto) 42 % (24-48) Monocytes (%) (Auto) 9 % (0-9) Eosinophils (%) (Auto) 1 % (0-3) Basophils (%) (Auto) 1 % (0-3) Neutrophils # (Auto) 6.2 x10^3uL (1.8-7.7) Lymphocytes # (Auto) 5.6 x10^3/uL (1.0-4.8) Monocytes # (Auto) 1.1 x10^3/uL (0.0-1.1) Eosinophils # (Auto) 0.2 x10^3/uL (0.0-0.7) Basophils # (Auto) 0.2 x10^3/uL (0.0-0.2) D-Dimer (Margie) 0.46 mg/L (0.00-0.50) Sodium Level 141 mmol/L (136-145) Potassium Level 4.0 mmol/L (3.5-5.1) Chloride Level 104 mmol/L (98-107) Carbon Dioxide Level 24 mmol/L (21-32) Anion Gap 13 (6-14) Blood Urea Nitrogen 17 mg/dL (8-26) Creatinine 1.4 mg/dL (0.7-1.3) Estimated GFR (Cockcroft-Gault) 52.4 BUN/Creatinine Ratio 12 (6-20) Glucose Level 195 mg/dL (70-99) Lactic Acid Level 5.5 mmol/L (0.4-2.0) 0.9 mmol/L (0.4-2.0) Calcium Level 9.4 mg/dL (8.5-10.1) Magnesium Level 2.5 mg/dL (1.8-2.4) Total Bilirubin 0.2 mg/dL (0.2-1.0) Aspartate Amino Transf (AST/SGOT) 33 U/L (15-37) Alanine Aminotransferase (ALT/SGPT) 44 U/L (16-63) Alkaline Phosphatase 182 U/L (46-116) Creatine Kinase 115 U/L (39-308) Troponin I Quantitative < 0.017 ng/mL (0-0.055) VT-Roa-F-Type Natriuretic Peptide 60 pg/mL (0-124) Total Protein 7.4 g/dL (6.4-8.2) Albumin 3.7 g/dL (3.4-5.0) Albumin/Globulin Ratio 1.0 (1.0-1.7) Blood Gas pH 7.28 (7.35-7.46) 7.25 (7.35-7.46) Blood Gas PCO2 56 mmHg (35-46) 62 mmHg (35-46) Blood Gas PO2 124 mmHg (80-100) 335 mmHg (80-100) Blood Gas HCO3 27 mmol/L (21-28) 27 mmol/L (21-28) Arterial Bld O2 Saturation (Calc) 98 % (92-99) 100 % (92-99) FiO2 40 % 100 % Influenza Type A (Rapid) Negative (NEGATIVE) Influenza Type B (Rapid) Negative (NEGATIVE) Vital Signs: Vital Signs Date Time Temp Pulse Resp B/P (MAP) Pulse Ox O2 Delivery O2 Flow Rate FiO2 02/07/20 07:03 98 V-60 02/07/20 04:41 98.0 113 50 170/97 (121) (KIRBY KULKARNI DO) EKG: EKG: Sinus tachycardia at 112 bpm, no axis deviation, QTC 441, no GUILLERMINA/STD/TWIs (PHILLIP FIELD DO) Radiology/Procedures: Radiology/Procedures: IMAGING REPORT Signed PATIENT: JOSE L CASTILLO ACCOUNT: [id number] : 1965 LOCATION: ER AGE: 55 SEX: M EXAM STATUS: REG ER ORD. PHYSICIAN: PHILLIP FIELD DO REASON: SOA, HX COPD PROCEDURE: PORTABLE CHEST 1V AP chest. HISTORY: Short of air, S history COPD Portable AP view was taken of the chest. There is an old right clavicle fracture. Heart is upper normal in size. There are interstitial changes which are new compared to the prior study from January 26. Mild vascular congestion with edema is possible. Atypical pneumonia would be possible. IMPRESSION: 1. Increased interstitial changes from edema or atypical pneumonia. Electronically signed by: Kathy West MD (02/07/2020 5:05 AM) [id number] DICTATED AND SIGNED BY: KATHY WEST MD DATE: 02/07/20 0505 CC: NICOLAS DIAZ; PHILLIP FIELD DO ~ Indication: Hypercapnic respiratory failure with increased work of breathing and significant tachypnea not improving on BiPAP Consent: Obtained by patient and his Christi Medications Used: Etomidate and succinylcholine Procedure: The patient was placed in the neutral position. Cricoid pressure not necessary. Intubation was performed via glide scope blade for, 7-5 ETT, 22 at lip. Secured with airway device. Initial confirmation of placement included direct visualization, bilateral equal breath sounds, no gastric bubbles, normal colorimetric change. A chest x-ray to verify correct placement of the tube. The patient tolerated the procedure . Complications: None Critical Care: Authorized and Performed by: Phillip Field DO Total critical care time: approximately 75 minutes Due to a high probability of clinically significant, life threatening deterioration, the patient required my highest level of preparedness to intervene emergently and I personally spent this critical care time directly and personally managing the patient. This critical care time included obtaining a history; examining the patient; pulse oximetry; ventilator management if nec essary; ordering and review of studies; arranging urgent treatment with development of a management plan; evaluation of patient's response to treatment; frequent reassessment; discussion with patient/family; and, discussions with other providers. This critical care time was performed to assess and manage the high probability of imminent, life-threatening deterioration that could result in multi-organ failure. It was exclusive of separately billable procedures and treating other patients and teaching time. Please see MDM section and the rest of the note for further information on patient assessment and treatment. (PHILLIP FIELD DO) Radiology/Procedures: PROCEDURE: CHEST AP ONLY Chest AP portable at 0710: Reason for examination: Tube placement. Comparison is made to previous study dated 02/07/2020. Endotracheal tube and NG tube are present. The NG tube tip and side port appear to be in the proximal stomach. The heart size is normal. Mediastinum is unremarkable. Inspiratory effort is poor but there is still a mild increase in lung markings which again could reflect edema or atypical pneumonia. No pleural effusions are seen. 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 No acute bony abnormalities are seen. IMPRESSION: Endotracheal tube and NG tube appear to be in satisfactory position. Poor inspiratory effort but continued presence of increased markings in the lung corona which could reflect edema or atypical pneumonia. Electronically signed by: Kirstin Villatoro MD (02/07/2020 8:07 AM) [facility] (KIRBY KULKARNI DO) Heart Score: Risk Factors: Risk Factors: DM, Current or recent (<one month) smoker, HTN, HLP, family history of CAD, obesity. Risk Scores: Score 0 - 3: 2.5% MACE over next 6 weeks - Discharge Home Score 4 - 6: 20.3% MACE over next 6 weeks - Admit for Clinical Observation Score 7 - 10: 72.7% MACE over next 6 weeks - Early Invasive Strategies (PHILLIP FIELD DO) Course & Med Decision Making: Course & Med Decision Making Pertinent Labs and Imaging studies reviewed. (See chart for details) COVID-19 CRITERIA: The patient was evaluated during the global COVID-19 pandemic, and that diagnosis was suspected/considered upon their initial presentation. Their evaluation, treatment and testing was consistent with current guidelines for patients who present with complaints or symptoms that may be related to COVID-19. Spoke to , Christi, over the phone. She reports pt "doesn't take care of himself," works 80-90 hours/week and has had difficulties breathing for the past few days. Has been sleeping in his upright recliner/noncompliant with his cpap for mala. No recent hospitalizations, has never seen a medical billing service. Pmd-Cliff Jackson Concern for acute hypercapneic respiratory failure/septic shock (sirs w/LA > 4), copd/mala, cannot exclude covid. Due to shift change patient pending x-ray images, labs, consider CTA chest. Will sign out to Dr. Kulkarni. Will need transfer to [facility] for ICU admission. (PHILLIP FIELD DO) Course & Med Decision Making Obtain comprehensive signout from off going physician Patient seen and examined by myself after reviewing current ER work-up and intervention so far. I agree with diagnoses of acute on chronic hypercarbic respiratory failure likely due to pneumonia. Antibiotics and appropriate ER care provided thus far I confirmed post intubation chest x-ray for ET tube in addition to OG tube and both found to be in satisfactory position I called Dr. Roche, on-call hospitalist at [facility] regarding need for admission and he agreed to accept patient under his care Patient remains in critical condition but stabilized for transport to [facility] for higher acuity of care in the ICU for pulmonology consultation Given patient is a PUI for COVID-19, joint decision to defer CT head and chest imaging at our facility as it would temporarily close our CT capabilities, this will be completed later on arrival to [facility] as it is not emergent and/or urgent at this time Patient's updated on plan of care and amenable, all questions and concerns addressed prior to patient transported via EMS to [facility] (KIRBY KULKARNI DO) Joeon Disclaimer: Velvet Disclaimer: This electronic medical record was generated, in whole or in part, using a voice recognition dictation system. (PHILLIP FIELD DO) Departure Departure: Impression: Primary Impression: Acute hypercapnic respiratory failure Additional Impressions: Person under investigation for COVID-19 Sepsis due to pneumonia Disposition: 02 DC/TRF OTHER SHORT TERM HOS (ICU at [facility]) Admitting Physician: Jose Roche (KIRBY KULKARNI DO) Condition: CRITICAL Referrals: NICOLAS DIAZ (PCP) PHILLIP FIELD DO Feb 07, 2020 04:47 KIRBY KULKARNI DO Feb 07, 2020 07:20
[2020-02-07 04:50] LABS: BASO # 0.2 x10^3/uL (0.0-0.2); BASO % 1 % (0-3); EOS # 0.2 x10^3/uL (0.0-0.7); EOS % 1 % (0-3); HEMATOCRIT 46.3 % (39.0-53.0); HEMOGLOBIN 14.6 g/dL (13.0-17.5); LYMPH # 5.6 x10^3/uL (1.0-4.8); LYMPH % 42 % (24-48); MEAN CORPUSCULAR HEMOGLOBIN 28 pg (25-35); MEAN CORPUSCULAR HGB CONC 32 g/dL (31-37); MEAN CORPUSCULAR VOLUME 90 fL (79-100); MONO # 1.1 x10^3/uL (0.0-1.1); MONO % 9 % (0-9); NEUT # 6.2 x10^3uL (1.8-7.7); NEUT % 47 % (31-73); PLATELET COUNT 391 x10^3/uL (140-400); RED BLOOD COUNT 5.15 x10^6/uL (4.30-5.70); RED CELL DISTRIBUTION WIDTH 14.3 % (11.5-14.5); WHITE BLOOD COUNT 13.3 x10^3/uL (4.0-11.0)
[2020-02-07] MEDS ORDERED: DOXYCYCLINE HYCLATE 100 MG VIAL IV ONE (04:50)
[2020-02-07] MEDS ORDERED: IV NORMAL SALINE 1,000ML 1,000 ML IV SCH (05:00)
[2020-02-07] MEDS ORDERED: IV NORMAL SALINE 1,000ML 1,000 ML IV ONE ×2 (05:00→06:00)
[2020-02-07] MEDS ORDERED: IPRATRPIUM/ALBUTEROL 0.5/2.5MG 3 ML NEBU. NEB ONE (05:00)
[2020-02-07] MEDS ORDERED: PIPERACILLIN/TAZOBACTAM 4.5 GM in IV NORMAL SALINE 50ML 50 ML IV ONE (05:00)
[2020-02-07] MEDS ORDERED: methylPREDNISolone SOD SUCC PF 125 MG/2 ML VIAL. IV ONE (05:00)
[2020-02-07] MEDS ORDERED: AZITHROMYCIN 500 MG in IV NORMAL SALINE 250ML 250 ML IV ONE (05:00)
[2020-02-07 05:02] LABS: CALCIUM 9.4 mg/dL (8.5-10.1); CREATININE 1.4 mg/dL (0.7-1.3); GFR 52.4
--- NOTE | 2020-02-07 05:08 | RAD ---
AP chest. HISTORY: Short of air, S history COPD Portable AP view was taken of the chest. There is an old right clavicle fracture. Heart is upper normal in size. There are interstitial changes which are new compared to the prior study from January 26. Mild vascular congestion with edema is possible. Atypical pneumonia would be possible. IMPRESSION: 1. Increased interstitial changes from edema or atypical pneumonia. Electronically signed by: Talon West MD (02/07/2020 5:05 AM) [id number]
[2020-02-07 05:15] LABS: ALBUMIN 3.7 g/dL (3.4-5.0); TOTAL BILIRUBIN 0.2 mg/dL (0.2-1.0); TOTAL PROTEIN 7.4 g/dL (6.4-8.2)
[2020-02-07] MEDS ORDERED: IV NORMAL SALINE 500ML 500 ML ONE (05:18)
[2020-02-07] MEDS ORDERED: PIPERACILLIN/TAZOBACTAM 4.5 GM VIAL IV ONE (05:19)
[2020-02-07] MEDS ORDERED: VANCOMYCIN 1 GM VIAL. ONE ×2 (05:19→05:20)
[2020-02-07] MEDS ORDERED: VANCOMYCIN 2 GM in IV NORMAL SALINE 500ML 500 ML IV ONE (05:30)
[2020-02-07 05:43] LABS: INFLUENZA A PATIENT NEGATIVE (NEGATIVE); INFLUENZA B PATIENT NEGATIVE (NEGATIVE)
[2020-02-07] MEDS ORDERED: PROPOFOL 100 ML IV ONE (05:53)
[2020-02-07] MEDS ORDERED: ETOMIDATE 40 MG/20 ML VIAL. INJ ONE (06:00)
[2020-02-07] MEDS ORDERED: SUCCINYLCHOLINE 200 MG/10 ML VIAL. IV ONE (06:00)
[2020-02-07] MEDS ORDERED: ONDANSETRON PF 4 MG/2 ML VIAL. IVP PRN (06:30)
[2020-02-07] MEDS ORDERED: PROPOFOL 100 ML IV PRN ×2 (06:30→06:35)
[2020-02-07 06:42] LABS: BGAS PH 7.28 (7.35-7.46)
[2020-02-07] MEDS ORDERED: CONTRAST GIVEN. MC PRN (06:45)
--- NOTE | 2020-02-07 06:52 | NUR ---
Pharmacy Vancomycin Dosing Note S:Consulted to monitor and dose vancomycin started 02/07/20. O:JOSE L CASTILLO is a 55 year old M with Pneumonia, . Height: 5 feet, 7 inches Weight: 102.3 kg [place] Body Weight: 66.10 Adjusted Body Weight: 80.58 Dosing Weight: Actual Other Antibiotics: ZOSYN LABS: Last BUN: 17 Last Creatinine: 1.4 Creatinine Clearance: 67 Last WBC: 13.3 Last Procalcitonin: Tmax (past 24 hours): Microbiology: I/O: Drug Levels: Last level: on at Last dose given 02/07/20 at 0630 Vancomycin Dosing: Loading Dose: 2000 mg x1 Dosing Weight: Actual Target Trough: 15-20 A: Based on: WT AND CRCL P: 1. Begin Vancomycin 1500 mg IV q12h 2. Follow up Trough level on 02/08/20 at 1830 3. Pharmacy will continue to monitor, follow and adjust therapy as needed. OSBALDO HERNANDEZ RPH, 02/07/2052 Signed: 02/07/20 at 0652 by OSBALDO HERNANDEZ RPH PHA
[2020-02-07 06:54] VITALS: BP 127/86
[2020-02-07] MEDS ORDERED: IOHEXOL 350 MG/ML 100 ML VIAL. IV ONE (07:00)
[2020-02-07 07:50] LABS: BGAS PH 7.25 (7.35-7.46)
--- NOTE | 2020-02-07 08:03 | EKG ---
[address] [address] Test Date: 2020-02-07 Test Time: 04:34:50 Pat Name: JOSE L CASTILLO Department: Room: Gender: M Kaiako Kohanga Reo: 2 : 1965 Requested By: PHILLIP FIELD Order Number: [id number] Reading MD: Measurements Intervals [place] Rate: 112 P: 59 DE: 128 QRS: 46 QRSD: 94 T: 48 QT: 322 QTc: 441 Interpretive Statements SINUS TACHYCARDIA LEFT ATRIAL ABNORMALITY ABNORMAL ECG RI6.02 No previous ECG available for comparison
--- NOTE | 2020-02-07 08:06 | RAD ---
Chest AP portable at 0638: Reason for examination: Post intubation. Short of breath. Endotracheal tube is present with the tip approximately 4 cm above the elly. Heart size is normal. Mediastinum is unremarkable. Lung corona show mild hazy infiltrates or edema without pleural effusions or pneumothorax. There is a chronic nonunion fracture at the right clavicle which is unchanged. No acute bony abnormalities are seen. IMPRESSION: Endotracheal tube in satisfactory position. Continued presence of mild hazy infiltrates or edema bilaterally. Electronically signed by: Kirstin Villatoro MD (02/07/2020 8:03 AM) TJ
--- NOTE | 2020-02-07 08:11 | RAD ---
Chest AP portable at 0710: Reason for examination: Tube placement. Comparison is made to previous study dated 02/07/2020. Endotracheal tube and NG tube are present. The NG tube tip and side port appear to be in the proximal stomach. The heart size is normal. Mediastinum is unremarkable. Inspiratory effort is poor but there is still a mild increase in lung markings which again could reflect edema or atypical pneumonia. No pleural effusions are seen. 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 No acute bony abnormalities are seen. IMPRESSION: Endotracheal tube and NG tube appear to be in satisfactory position. Poor inspiratory effort but continued presence of increased markings in the lung corona which could reflect edema or atypical pneumonia. Electronically signed by: Kirstin Villatoro MD (02/07/2020 8:07 AM) TJ
[2020-02-07] MEDS ORDERED: VANCOMYCIN 1.5 GM in IV NORMAL SALINE 500ML 500 ML IV SCH (19:00)
--- NOTE | 2020-02-09 12:26 | NUR ---
IP: notified IP at [facility] of COVID result.
== END 2020-02-07 09:30 | disposition short-term general hospital (02) ==
LOC: ER 04:17
DX: J96.02 Acute respiratory failure with hypercapnia (principal); Z20.828 Contact with and (suspected) exposure to other viral communicable diseases; A41.9 Sepsis, unspecified organism; J44.9 Chronic obstructive pulmonary disease, unspecified; F17.210 Nicotine dependence, cigarettes, uncomplicated; F12.90 Cannabis use, unspecified, uncomplicated; F14.90 Cocaine use, unspecified, uncomplicated; Z98.890 Other specified postprocedural states
CPT/HCPCS: 31500; 36415; 36600; 43752; 71045; 80053; 82550; 82803; 83605; 83735; 83880; 84484; 85025; 85379; 87040; 87804; 93005; 94640; 94660; 96365; 96366; 96368; 96375; 99291; 99292; C9803; J0330; J0696; J2543; J2704; J2930; J3010; J3370; J3490; J7030; J7040; U0003; 94002